=== PATIENT | male | born 1960 | race Caucasian/White ===

== ENCOUNTER 2017-09-01 06:29 | Day surgery (SDC) | payer OTHER ==
[~2017-09-01 06:29] MED LIST: Buffered Lidocaine 0.9% SYRIN* 5 ML/SYR SYRINGE INTRADERM ONE; Dexamethasone IV* 4 MG/ML 1 ML (4 MG) IV SLOW PU ONE; Dexamethasone IV* 4 MG/ML 1 ML (4 MG) ONE; Famotidine IV* 10 MG/ML 2 ML (20 mg) IV ONE; Famotidine IV* 10 MG/ML 2 ML (20 mg) ONE
[2017-09-01] MEDS ORDERED: ceFAZolin 2 GM PREMIX (*) 2 GM/50 ML BAG IVPB ONE (06:41)
[2017-09-01] MEDS ORDERED: Bupivacaine 0.25% SDV* 30 ML ONE (07:22)
[2017-09-01] MEDS ORDERED: Levalbuterol 0.63MG/3ML NEB* UNIT OF USE INH ONE ×2 (07:24→07:27)
[2017-09-01] MEDS ORDERED: Ondansetron INJ* 2 MG/ML VIAL ONE (07:31)
[2017-09-01] MEDS ORDERED: Propofol* 10 MG/ML 20 ML BTL IV PUSH ONE (07:31)
[2017-09-01] MEDS ORDERED: fentaNYL* 50 MCG/ML 5 ML VIAL (250 MCG VIAL) ONE (07:31)
[2017-09-01] MEDS ORDERED: Lidocaine 2% PF * 5 ML VIAL ONE (07:31)
[2017-09-01] MEDS ORDERED: Ketorolac INJ* 30 MG/ML 1 ML VIAL ONE (07:31)
[2017-09-01] MEDS ORDERED: Midazolam* 1 MG/ML 2 ML VIAL (2 MG) ONE (07:31)
[2017-09-01] MEDS ORDERED: Atracurium* 10 MG/ML 10 ML VIAL ONE (07:36)
[2017-09-01] MEDS ORDERED: EPHEDrine (Pressors)* 50 MG/ML VIAL ONE (08:10)
[2017-09-01] MEDS ORDERED: Glycopyrrolate IV* 0.2 MG/ML 1 ML VIAL ONE (08:10)
[2017-09-01] MEDS ORDERED: HYDROmorphone INJ* 1 MG/ML CARPUJECT SYRINGE IV PRN (08:30)
[2017-09-01] MEDS ORDERED: Ondansetron INJ* 2 MG/ML VIAL IV PRN (08:30)
[2017-09-01] MEDS ORDERED: DiMENhydriNATE IV* 50 MG/ML VIAL IV PUSH PRN (08:30)
[2017-09-01] MEDS ORDERED: fentaNYL* 50 MCG/ML 2 ML VIAL (100 MCG VIAL) ONE ×2 (08:44→09:45)
[2017-09-01] MEDS ORDERED: Succinylcholine* 20 MG/ML 10 ML VIAL ONE (09:44)
[2017-09-01] MEDS ORDERED: oxyCODONE/Acetamin 5/325 MG* TAB ONE ×2 (09:45→09:55)
[2017-09-01] MEDS: oxyCODONE/Acetamin 5/325 MG* TAB PO PRN ×2 (09:48→09:59)
[2017-09-01] MEDS: fentaNYL* 50 MCG/ML 2 ML VIAL (100 MCG VIAL) IV PRN ×2 (09:49→10:00)
[2017-09-01 11:02] VITALS: BP 132/74
--- NOTE | 2017-09-01 21:59 | OP ---
DATE OF OPERATION: 09/01/17 - [facility] DATE OF : 64 SURGEON: Aren Sims MD OCEANOGRAPHIC METEOROLOGIST: KEN Wagoner. An operator/assistant foreman was needed for the entirety of the procedure to aid in positioning of the arm and retraction. ANESTHESIOLOGIST: Joe Kumar MD ANESTHESIA: General. PRE-OP DIAGNOSES: 1. Right cubital tunnel syndrome status post right cubital tunnel release. 2. Right medial antebrachial cutaneous nerve neuroma. POST-OP DIAGNOSES: 1. Right cubital tunnel syndrome status post in situ cubital tunnel release. 2. Right medial antebrachial cutaneous nerve neuroma. OPERATIVE PROCEDURE: 1. Revision, right ulnar nerve decompression with anterior transposition. 2. Excision of right medial antebrachial cutaneous nerve neuroma with subsequent burying of the distal end of the medial antebrachial cutaneous nerve in the humerus. INDICATIONS: Arturo had his prior surgery a couple of years ago. He was found on to be terribly symptomatic with lot of pain and paresthesias in the distribution of the medial antebrachial cutaneous nerve. I talked to him about revision surgery and told him that there is a chance it would not work and he could still be in lot of pain. However, there is very little downside that the arm is essentially disabled from this and tremendous upside and therefore I thought it was worth doing. He very much agreed. He certainly understands there is a chance he will have continued persistent significant pain postoperatively. ESTIMATED BLOOD LOSS: 5 mL. COMPLICATIONS: None. FINDINGS: The ulnar nerve was sitting in the cubital tunnel. DESCRIPTION OF PROCEDURE: Arturo was seen in the preoperative holding area. The correct side, site, and procedure were identified. We came back to the operating room. The arm was prepped and draped in the usual fashion. Time-out was performed. I began by exsanguinating the arm with the Esmarch and the tourniquet was inflated to 250 mmHg. I extended his prior cubital tunnel release incision proximally and distally another 4 to 5 cm in either direction. The dissection was carried down through the subcutaneous tissue. The ulnar nerve was encountered in the cubital tunnel. It was released proximally and distally in its entirety. The medial antebrachial cutaneous nerve was identified in its typical location; however, it was branching. There was indeed a significant neuroma in continuity in the medial antebrachial cutaneous right at the site of the prior decompression. I went ahead and mobilized the medial antebrachial cutaneous nerve. Full-thickness flap was raised right off the flexor pronator fascia of the medial epicondyle. Once the complete neurolysis was performed, then the ulnar nerve was able to be transposed into the correct position. I then turned my attention to the medial antebrachial cutaneous nerve. I went ahead and excised the neuroma by clipping the nerve proximally and distally. The ends of the nerves were cauterized with the Bovie. I then came proximally on the humerus and excised the medial intermuscular septum. This took me down to the medial supracondylar ridge. I used a 2.5-mm drill bit to create a bone tunnel into the humerus. I then docked the proximal end of the medial antebrachial cutaneous nerve into the drill hole and this was secured to the periosteum with 8-0 nylon suture. I had created an initial drill hole little bit more distal but I thought it was far too distal and wanted to get more proximal, so I created a second drill hole more proximal in the medial and the nerve was docked into that drill hole. Once that was nicely secured, I went ahead and raised opposing flaps off the flexor pronator fascia. The septa were excised the flexor pronator muscles. Once I had a nice muscular bed, I went ahead and transposed nerve on to that bed. The two ends of the flaps were transposed and sewn end-to-end to create a nice loose fascial sleeve, holding the nerve in the transposed position. I checked, there was absolutely no compression or kinking of the nerve at any location. Everything was nice decompressed. Hemostasis was obtained with Bovie. Skin was closed with 3-0 Vicryl and 3-0 Monocryl running sutures and Steri-Strips. 0.25% Marcaine was infiltrated into the area. The wound was dressed with 4x4's, an ABD, sterile Webril, and a long-arm splint was applied. Tourniquet was deflated. The hand pinked up immediately. He was taken to the recovery room in stable condition. [id number]/[facility] #: [id number] MTDD
== END 2017-09-01 10:48 | disposition home or self-care (01) ==
LOC: OREAST 06:29
PROVIDERS: ATTEND Orthopaedic Surgery Hand Surgery
DX: G56.21 Lesion of ulnar nerve, right upper limb (principal); D36.12 Benign neoplasm of peripheral nerves and autonomic nervous system, upper limb, including shoulder; I10 Essential (primary) hypertension; Z88.1 Allergy status to other antibiotic agents; Z88.8 Allergy status to other drugs, medicaments and biological substances; F17.210 Nicotine dependence, cigarettes, uncomplicated
CPT/HCPCS: 88305; A9270-GY; J0330; J0690; J1100; J1885; J2250; J2405; J2704; J3010; J7614